=== PATIENT | female | born 1995 | race Caucasian/White ===

== ENCOUNTER 2017-11-04 19:48 | Emergency (ER) | payer BC ==
[~2017-11-04] VITALS: Ht 167.6 cm; Wt 60.8 kg
[2017-11-04 20:04] VITALS: BP 119/81
== END 2017-11-04 21:32 | disposition home or self-care (01) ==
LOC: ED 21:07
DX: L23.7 Allergic contact dermatitis due to plants, except food (principal)
CPT/HCPCS: 99283